=== PATIENT | male | born 1970 | race Caucasian/White ===

== ENCOUNTER 2020-12-14 12:14 | Outpatient (CLI) | payer BC ==
--- NOTE | 2020-12-14 12:39 | RAD ---
RADIOGRAPH CHEST 1 VIEW: DATE: 12/14/2020 HISTORY: 50-year-old male with intermittent fever for 2 months FINDINGS: There are no consolidations, pulmonary edema, pneumothorax, or cardiomegaly. The lateral costophrenic angles are sharp. Right subclavian dual lead permanent pacemaker. Prominent interstitial markings especially at lower lung zones. IMPRESSION: No consolidation.
== END 2020-12-14 12:15 | disposition home or self-care (01) ==
LOC: BICRAD 12:14
PROVIDERS: ATTEND Family Medicine
DX: R50.9 Fever, unspecified (principal)
CPT/HCPCS: 36415; 71046; 80053; 81001; 82164; 83520; 85025; 85379; 85652; 86140; 86200; 86618; 86780; 87040; 87389; 87497; 87798

== ENCOUNTER 2021-01-20 07:30 | Outpatient (CLI) | payer BC ==
[2021-01-20] MEDS ORDERED: Iopamidol-370 76% 500 ML 1 ML ONE (13:45)
== END 2021-01-20 07:31 | disposition home or self-care (01) ==
LOC: BICCT 07:30
PROVIDERS: ATTEND Internal Medicine Infectious Disease
DX: R50.9 Fever, unspecified (principal); E27.8 Other specified disorders of adrenal gland; K57.30 Diverticulosis of large intestine without perforation or abscess without bleeding; R91.8 Other nonspecific abnormal finding of lung field
CPT/HCPCS: 71260; 74177; Q9967

== ENCOUNTER 2021-02-23 07:57 | Outpatient (CLI) | payer BC ==
[2021-02-23] MEDS ORDERED: Iopamidol-370 76% 500 ML 1 ML ONE (14:49)
== END 2021-02-23 07:58 | disposition home or self-care (01) ==
LOC: BICCT 07:57
PROVIDERS: ATTEND Internal Medicine Infectious Disease
DX: E27.8 Other specified disorders of adrenal gland (principal); R50.9 Fever, unspecified; K76.0 Fatty (change of) liver, not elsewhere classified; K80.20 Calculus of gallbladder without cholecystitis without obstruction; K57.30 Diverticulosis of large intestine without perforation or abscess without bleeding
CPT/HCPCS: 74170; Q9967

== ENCOUNTER 2022-08-09 12:32 | Outpatient (CLI) | payer BC ==
[~2022-08-09 12:32] MED LIST: Iopamidol-370 76% 500 ML 1 ML ONE
== END 2022-08-09 12:33 | disposition home or self-care (01) ==
LOC: BICCT 12:32
PROVIDERS: ATTEND Internal Medicine Endocrinology, Diabetes & Metabolism
DX: E27.8 Other specified disorders of adrenal gland (principal); K80.20 Calculus of gallbladder without cholecystitis without obstruction; K57.30 Diverticulosis of large intestine without perforation or abscess without bleeding; K76.0 Fatty (change of) liver, not elsewhere classified
CPT/HCPCS: 74170; Q9967

== ENCOUNTER 2022-11-24 07:05 | Outpatient (CLI) | payer BC ==
[2022-11-22 14:04] VITALS: BMI 56.9
[2022-11-24 09:29] VITALS: BP 162/88; TEMP 98.7
[2022-11-24 10:00] LABS: CSF, Glucose 77 mg/dl (40-70); CSF, Protein 35 mg/dL (15-40)
[2022-11-24 10:32] LABS: CSF RBC Count - Manual 0 /cu.mm (None Seen); CSF Source CSF; CSF WBC/NonHematics Count-Man 1 /cu.mm (0-5); Clarity Clear (Clear); Tube # 4
[2022-11-27 16:37] LABS: VDRL, CSF Non Reactive (Non Rea:<1:1)
== END 2022-11-24 09:55 | disposition home or self-care (01) ==
LOC: RAD 07:05
PROVIDERS: ATTEND Psychiatry & Neurology Neurology
DX: R53.83 Other fatigue (principal)
CPT/HCPCS: 62270; 70450; 82945; 83916; 84157; 86592; 89051

== ENCOUNTER 2022-11-30 08:01 | Inpatient (IN) | payer BC ==
[2022-11-30] MEDS ORDERED: Morphine 4 MG/ML VIAL ONE (08:39)
[2022-11-30] MEDS ORDERED: Ondansetron PF 4 MG/2 ML Vial ONE (08:40)
[2022-11-30] MEDS ORDERED: Ketorolac Tromethamine 30 MG/ML VIAL ONE (08:40)
[2022-11-30 09:00] LABS: #Eosinphils 0.2 thou/uL (0.0-0.7); #Lymphocytes 3.1 thou/uL (1.20-3.40); #Monocytes 0.5 thou/uL (0.11-0.59); #Neutrophils 3.8 thou/uL (1.40-6.50); %Basophils 0.6 % (0.0-1.0); %Eosinophils 3.1 % (0.0-10.0); %Lymphocytes 40.1 % (21.0-51.0); %Monocytes 6.8 % (0.0-10.0); %Neutrophils 49.5 % (42.0-75.0); Mean Corpuscular HGB CONC 35.9 g/dL (32.0-36.0); Mean Corpuscular Hemoglobin 33.9 pg (27.0-31.0); Mean Corpuscular Volume 94.4 fl (78.0-98.0); Mean Platelet Volume 7.2 fL (7.4-10.4); Platelet Count 189 10x3/uL (130-400); RBC Distribution Width 12.3 % (11.5-14.5); Red Blood Cell (RBC) Count 4.73 mill/uL (4.70-6.10); White Blood Cell (WBC) Count 7.7 10x3/uL (4.8-10.8)
[2022-11-30 09:01] LABS: ALT (SGPT) 38 U/L (8-55); AST (SGOT) 22 U/L (5-34); Albumin 4.2 g/dL (3.5-5.0); Alkaline Phosphatase 80 U/L (40-110); Anion Gap 14 mmol/L (10-20); BUN (Urea Nitrogen) 13 mg/dL (8.4-25.7); Bilirubin, Total 0.9 mg/dL (0.2-1.2); CRP (Inflammatory) 0.82 mg/dL (= or < 0.5); Calc. Creatinine Clearance 0 mL/min (70-130); Calcium 9.4 mg/dL (7.8-10.44); Carbon Dioxide 24 mmol/L (22-29); Chloride 101 mmol/L (98-107); Estimated GFR 93; Globulin 3.2 g/dL (2.4-3.5); Glucose 140 mg/dL (70-105); Potassium 3.8 mmol/L (3.5-5.1); Protein, Total 7.4 g/dL (6.0-8.3); Sodium 135 mmol/L (136-145)
[2022-11-30 09:16] LABS: Bilirubin Negative (Negative); Blood, Urine Negative (Negative); Clarity Clear (Clear); Glucose, Urine (Dipstick) Normal (Negative); Ketone, Urine Negative (Negative); Leukocyte Negative Leu/uL (Negative); Nitrite Negative (Negative); Protein, Urine (Dipstick) Negative (Neg-Trace); Specific Gravity, Urine 1.014 (1.002-1.036); Urobilinogen Normal mg/dL (Less than 2); pH, Urine 5.5 (5.0-9.0)
[2022-11-30] MEDS ORDERED: Aspirin Chewable 81 MG TAB ONE (14:11)
[2022-11-30] MEDS ORDERED: Iopamidol-370 76% 500 ML 1 ML ONE ×2 (14:34→14:39)
[2022-11-30] MEDS ORDERED: Acetaminophen 325 MG TAB PO PRN (15:21)
[2022-11-30] MEDS ORDERED: HumaLOG 300 UNITS/3 ML VIAL SC PRN (15:27)
[2022-11-30] MEDS ORDERED: Morphine 4 MG/ML VIAL SLOW IVP PRN (15:27)
[2022-11-30] MEDS ORDERED: Dextrose 50% Abboject 50 ML SYRINGE SLOW IVP PRN (15:27)
[2022-11-30] MEDS ORDERED: Dextrose 5% in Water 1,000 ML IV PRN (15:27)
[2022-11-30] MEDS ORDERED: Nebivolol HCl 5 MG TAB PO SCH (15:29)
[2022-11-30] MEDS: Sodium Chloride 0.9% 1,000 ML IV SCH (17:08)
[2022-11-30 17:42] VITALS: BMI 57.0
[2022-11-30] MEDS: HYDROcodone/Acetaminophen 5/325 mg Tablet PO PRN (19:43)
[2022-11-30] MEDS: Atorvastatin Calcium 20 MG TAB PO SCH (20:47)
[2022-12-01] MEDS: Sodium Chloride 0.9% 1,000 ML IV SCH (05:33)
[2022-12-01] MEDS: HYDROcodone/Acetaminophen 5/325 mg Tablet PO PRN ×2 (05:43→11:13)
[2022-12-01 05:54] LABS: Anion Gap 13 mmol/L (10-20); BUN (Urea Nitrogen) 11 mg/dL (8.4-25.7); Calc. Creatinine Clearance 241 mL/min (70-130); Calcium 8.9 mg/dL (7.8-10.44); Carbon Dioxide 26 mmol/L (22-29); Chloride 101 mmol/L (98-107); Estimated GFR 105; Glucose 121 mg/dL (70-105); Potassium 3.6 mmol/L (3.5-5.1); Sodium 136 mmol/L (136-145)
[2022-12-01] MEDS: Aspirin 81 mg Enteric Coated Tablet PO SCH (08:54)
[2022-12-01] MEDS: Nebivolol HCl 5 MG TAB PO SCH (08:54)
[2022-12-01] MEDS ORDERED: FLU VACC QS2022-23(6MOS UP)/PF 60 MCG/0.5 ML SYRINGE IM ONE (09:00)
[2022-12-01] MEDS: HumaLOG 300 UNITS/3 ML VIAL SC PRN (11:07)
[2022-12-01 12:42] VITALS: BP 123/66
[2022-12-01] MEDS ORDERED: ADMIXTURE FEE IVPB SCH (14:30)
[2022-12-01] MEDS ORDERED: IMMUNE GLOBULIN IVPB SCH (14:30)
[2022-12-01 15:12] LABS: Anion Gap 12 mmol/L (10-20); BUN (Urea Nitrogen) 11 mg/dL (8.4-25.7); Calc. Creatinine Clearance 215 mL/min (70-130); Calcium 9.1 mg/dL (7.8-10.44); Carbon Dioxide 26 mmol/L (22-29); Chloride 101 mmol/L (98-107); Estimated GFR 98; Glucose 142 mg/dL (70-105); Magnesium 2.2 mg/dL (1.6-2.6); Phosphorus 2.7 mg/dL (2.3-4.7); Potassium 3.8 mmol/L (3.5-5.1); Sodium 135 mmol/L (136-145)
[2022-12-01] MEDS ORDERED: Dextrose 5 %-0.45 % NaCl 1,000 ML IV SCH (15:30)
[2022-12-01 15:31] LABS: Free T4 (Free Thyroxine) 0.89 ng/dL (0.70-1.48); Thyroid Stimulating Hormone 1.794 uIU/mL (0.35-4.94)
[2022-12-01] MEDS ORDERED: Morphine 2 MG/ML VIAL SLOW IVP PRN (15:38)
[2022-12-01] MEDS: Privigen 40 GM in Admixture Fee 1 EACH IVPB SCH (16:26)
[2022-12-01] MEDS: Morphine 4 MG/ML VIAL SLOW IVP PRN (16:27)
[2022-12-01] MEDS: Atorvastatin Calcium 20 MG TAB PO SCH (20:34)
[2022-12-02] MEDS: Morphine 4 MG/ML VIAL SLOW IVP PRN ×2 (02:13→13:46)
[2022-12-02 08:20] LABS: #Eosinphils 0.2 thou/uL (0.0-0.7); #Lymphocytes 1.8 thou/uL (1.20-3.40); #Monocytes 0.4 thou/uL (0.11-0.59); #Neutrophils 2.5 thou/uL (1.40-6.50); %Basophils 0.1 % (0.0-1.0); %Eosinophils 4.1 % (0.0-10.0); %Lymphocytes 36.9 % (21.0-51.0); %Monocytes 7.7 % (0.0-10.0); %Neutrophils 51.2 % (42.0-75.0); Hemoglobin 15.1 g/dL (14.0-18.0); Mean Corpuscular HGB CONC 34.7 g/dL (32.0-36.0); Mean Corpuscular Hemoglobin 32.7 pg (27.0-31.0); Mean Corpuscular Volume 94.5 fl (78.0-98.0); Mean Platelet Volume 6.6 fL (7.4-10.4); Platelet Count 184 10x3/uL (130-400); Red Blood Cell (RBC) Count 4.63 mill/uL (4.70-6.10); White Blood Cell (WBC) Count 4.9 10x3/uL (4.8-10.8)
[2022-12-02 08:39] LABS: Anion Gap 13 mmol/L (10-20); BUN (Urea Nitrogen) 9 mg/dL (8.4-25.7); Calc. Creatinine Clearance 239 mL/min (70-130); Carbon Dioxide 24 mmol/L (22-29); Chloride 101 mmol/L (98-107); Estimated GFR 105; Glucose 129 mg/dL (70-105); Potassium 3.7 mmol/L (3.5-5.1); Sodium 134 mmol/L (136-145)
[2022-12-02] MEDS: Aspirin 81 mg Enteric Coated Tablet PO SCH (09:09)
[2022-12-02] MEDS: Nebivolol HCl 5 MG TAB PO SCH ×2 (09:14→13:09)
[2022-12-02] MEDS: HumaLOG 300 UNITS/3 ML VIAL SC PRN (11:55)
[2022-12-02 11:56] VITALS: TEMP 97.3
[2022-12-02] MEDS: Privigen 40 GM in Admixture Fee 1 EACH IVPB SCH (15:32)
== END 2022-12-02 17:00 | disposition short-term general hospital (02) | DRG 74 ==
LOC: ERS 08:01 → NEURO 15:42 → OBSVTOIN 12-01 14:09 → IMCU/EMU 12-01 15:36
PROVIDERS: ADMIT Family Medicine; ATTEND Family Medicine
PROC: 30233S1 Transfusion of Nonautologous Globulin into Peripheral Vein, Percutaneous Approach (ICD-10-PCS; principal; 2022-12-01)
DX: G61.81 Chronic inflammatory demyelinating polyneuritis (principal); G93.49 Other encephalopathy; Z68.43 Body mass index [BMI] 50.0-59.9, adult; G81.94 Hemiplegia, unspecified affecting left nondominant side; I10 Essential (primary) hypertension; E11.9 Type 2 diabetes mellitus without complications; E66.9 Obesity, unspecified; Z95.0 Presence of cardiac pacemaker; Z90.49 Acquired absence of other specified parts of digestive tract; Z98.52 Vasectomy status; Z79.899 Other long term (current) drug therapy; Z79.82 Long term (current) use of aspirin; Z79.84 Long term (current) use of oral hypoglycemic drugs
CPT/HCPCS: 36415; 36416; 70450; 70496; 70498; 71045; 71275; 74174; 80048; 80053; 81003; 83690; 83735; 84100; 84439; 84443; 84481; 84484; 85025; 85652; 86140; 93005; 93306; 93970; 95712; 95819; 95957; 96372; 96374; 96375; G0378; J1459; J1650; J1815; J1885; J2270; J2272; J2405; J7050; Q9967; U0003; U0005

== ENCOUNTER 2022-12-26 14:29 | Emergency (ER) | payer BC ==
[2022-12-26 15:39] LABS: #Eosinphils 0.1 thou/uL (0.0-0.7); #Lymphocytes 2.6 thou/uL (1.20-3.40); #Monocytes 0.5 thou/uL (0.11-0.59); #Neutrophils 2.9 thou/uL (1.40-6.50); %Basophils 0.3 % (0.0-1.0); %Eosinophils 2.3 % (0.0-10.0); %Lymphocytes 41.8 % (21.0-51.0); %Monocytes 8.3 % (0.0-10.0); %Neutrophils 47.3 % (42.0-75.0); Hemoglobin 14.1 g/dL (14.0-18.0); Mean Corpuscular HGB CONC 34.6 g/dL (32.0-36.0); Mean Corpuscular Hemoglobin 32.4 pg (27.0-31.0); Mean Corpuscular Volume 93.6 fl (78.0-98.0); Mean Platelet Volume 6.8 fL (7.4-10.4); Platelet Count 188 10x3/uL (130-400); Red Blood Cell (RBC) Count 4.37 mill/uL (4.70-6.10); White Blood Cell (WBC) Count 6.1 10x3/uL (4.8-10.8)
[2022-12-26 15:47] LABS: Prothrombin Time 13.6 sec (12.0-14.7)
[2022-12-26 15:48] LABS: PTT 27.5 sec (22.9-36.1)
[2022-12-26 16:01] LABS: ALT (SGPT) 91 U/L (8-55); AST (SGOT) 33 U/L (5-34); Albumin 3.8 g/dL (3.5-5.0); Alkaline Phosphatase 74 U/L (40-110); Anion Gap 14 mmol/L (10-20); BUN (Urea Nitrogen) 11 mg/dL (8.4-25.7); Bilirubin, Total 0.6 mg/dL (0.2-1.2); Calc. Creatinine Clearance 0 mL/min (70-130); Carbon Dioxide 22 mmol/L (22-29); Chloride 102 mmol/L (98-107); Estimated GFR 86; Globulin 2.8 g/dL (2.4-3.5); Glucose 112 mg/dL (70-105); Lipase 33 U/L (8-78); Magnesium 1.7 mg/dL (1.6-2.6); Potassium 3.9 mmol/L (3.5-5.1); Protein, Total 6.6 g/dL (6.0-8.3); Sodium 134 mmol/L (136-145)
[2022-12-26] MEDS ORDERED: Aspirin Chewable 81 MG TAB ONE (16:31)
[2022-12-26] MEDS ORDERED: Morphine 4 MG/ML VIAL ONE (17:58)
[2022-12-26 18:10] LABS: SARS-CoV-2 NAA Rapid Test Not Detected (NotDetected)
== END 2022-12-26 19:43 | disposition short-term general hospital (02) ==
LOC: ERS 14:29
DX: I69.952 Hemiplegia and hemiparesis following unspecified cerebrovascular disease affecting left dominant side (principal); I63.9 Cerebral infarction, unspecified; G61.81 Chronic inflammatory demyelinating polyneuritis; E11.9 Type 2 diabetes mellitus without complications; E78.00 Pure hypercholesterolemia, unspecified; I10 Essential (primary) hypertension; Z87.891 Personal history of nicotine dependence; Z79.84 Long term (current) use of oral hypoglycemic drugs; Z79.899 Other long term (current) drug therapy; Z79.4 Long term (current) use of insulin; Z20.822 Contact with and (suspected) exposure to COVID-19
CPT/HCPCS: 36415; 70496; 70498; 71045; 80053; 83605; 83690; 83735; 83880; 84443; 84484; 85025; 85610; 85730; 93005; 96374; J2270; Q9967

== ENCOUNTER 2023-05-15 11:29 | Observation (INO) | payer BC ==
[2023-05-15 13:16] LABS: #Eosinphils 0.2 thou/uL (0.0-0.7); #Monocytes 0.5 thou/uL (0.11-0.59); #Neutrophils 3.4 thou/uL (1.40-6.50); %Basophils 0.5 % (0.0-1.0); %Eosinophils 2.7 % (0.0-10.0); %Lymphocytes 42.6 % (21.0-51.0); %Monocytes 7.2 % (0.0-10.0); %Neutrophils 46.9 % (42.0-75.0); Hemoglobin 15.6 g/dL (14.0-18.0); Mean Corpuscular HGB CONC 34.5 g/dL (32.0-36.0); Mean Corpuscular Hemoglobin 31.8 pg (27.0-31.0); Mean Corpuscular Volume 92.1 fl (78.0-98.0); Mean Platelet Volume 9.5 fL (7.4-10.4); Platelet Count 191 10x3/uL (130-400); RBC Distribution Width 13.4 % (11.5-14.5); Red Blood Cell (RBC) Count 4.91 mill/uL (4.70-6.10); White Blood Cell (WBC) Count 7.4 10x3/uL (4.8-10.8)
[2023-05-15 13:18] LABS: Actual Bicarbonate (HCO3v) 22.2 mEq/L (22-28); Analyzer IN Cardio ER; Base Excess 0.6 mEq/L (-2.0 to +3.0); Calcium, Ionized (venous) 0.85 mmol/L (1.16-1.32); Chloride (VBG) 104 mmol/L (98-106); Hematocrit-VBG 52 % (42.0-52.0); Hemoglobin (Hb) 17.6 g/dL (13.1-17.2); Potassium (VBG) 3.84 mmol/L (3.70-5.30); pH (venous) 7.504 (7.32-7.43)
[2023-05-15 13:34] LABS: ALT (SGPT) 35 U/L (8-55); AST (SGOT) 19 U/L (5-34); Albumin 4.3 g/dL (3.5-5.0); Alkaline Phosphatase 87 U/L (40-110); Anion Gap 11 mmol/L (10-20); BUN (Urea Nitrogen) 11 mg/dL (8.4-25.7); Bilirubin, Total 0.8 mg/dL (0.2-1.2); Calc. Creatinine Clearance 0 mL/min (70-130); Calcium 8.7 mg/dL (7.8-10.44); Carbon Dioxide 27 mmol/L (22-29); Chloride 104 mmol/L (98-107); Estimated GFR 93; Globulin 2.5 g/dL (2.4-3.5); Glucose 88 mg/dL (70-105); Potassium 4.2 mmol/L (3.5-5.1); Protein, Total 6.8 g/dL (6.0-8.3); Sodium 138 mmol/L (136-145)
[2023-05-15 13:59] LABS: Digoxin Less than 0.15 ng/mL (0.8-2.0)
[2023-05-15 14:05] LABS: Acetaminophen Less than 10 mcg/mL (10.0-30.0); Alcohol Less than 10.0 mg/dL (Less than 10); Lipase 44 U/L (8-78); Magnesium 1.9 mg/dL (1.6-2.6); Salicylate Less than 8.0 mg/dL (15.0-30.0)
[2023-05-15 15:10] LABS: Bacteria/HPF None Seen HPF (None Seen); Bilirubin Negative (Negative); Blood, Urine Negative (Negative); CAUTI Indications for Culture Alt mental st,lethar; Clarity Clear (Clear); Glucose, Urine (Dipstick) Normal (Negative); Ketone, Urine Negative (Negative); Leukocyte Negative Leu/uL (Negative); Nitrite Negative (Negative); Protein, Urine (Dipstick) Negative (Neg-Trace); RBC/HPF None Seen HPF (0-3); Specific Gravity, Urine 1.008 (1.002-1.036); Squamous Epithelial None Seen HPF (0-3); Urobilinogen Normal mg/dL (Less than 2); WBC/HPF None Seen HPF (0-3)
[2023-05-15 15:15] LABS: Urine Culture Reflex No No
[2023-05-15 15:16] VITALS: BMI 52.6
[2023-05-15 15:16] LABS: Amphetamine Not Detected (NotDetected); Barbiturates Screen Not Detected (NotDetected); Benzodiazepine Screen Not Detected (NotDetected); Cocaine Metabolite Screen Not Detected (NotDetected); Methadone Not Detected (NotDetected); Methamphetamine Not Detected (NotDetected); Opiate Screen Detected (NotDetected); Oxycodone Screen Not Detected (NotDetected); Phencyclidine (PCP) Not Detected (NotDetected); THC/Cannabinoid Screen Not Detected (NotDetected); Tricyclic Screen Not Detected (NotDetected)
[2023-05-15] MEDS ORDERED: Senokot S 8.6-50 MG TAB PO PRN (15:40)
[2023-05-15] MEDS ORDERED: Guaifenesin DM 100-10/5 ML UDCUP PO PRN (15:40)
[2023-05-15] MEDS ORDERED: Acetaminophen 325 MG TAB PO PRN (15:40)
[2023-05-15] MEDS ORDERED: Ondansetron PF 4 MG/2 ML Vial IVP PRN (15:40)
[2023-05-15] MEDS ORDERED: Bisacodyl 10 MG SUPP PR PRN (15:40)
[2023-05-15] MEDS ORDERED: CeleCOXIB 100 MG CAP PO PRN (16:21)
[2023-05-15] MEDS ORDERED: HYDROcodone/Acetaminophen 5/325 mg Tablet PO PRN (16:21)
[2023-05-15] MEDS ORDERED: Cyclobenzaprine 10 MG TAB PO PRN (16:21)
[2023-05-15] MEDS ORDERED: metFORMIN 500 MG TAB PO SCH (17:00)
[2023-05-15] MEDS: Gabapentin 400 MG CAP PO SCH (20:21)
[2023-05-15] MEDS: Icosapent Ethyl 1 GM CAPSULE PO SCH (20:22)
[2023-05-15] MEDS ORDERED: Atorvastatin Calcium 20 MG TAB PO SCH (21:00)
[2023-05-16 07:29] LABS: #Eosinphils 0.2 thou/uL (0.0-0.7); #Monocytes 0.5 thou/uL (0.11-0.59); #Neutrophils 3.5 thou/uL (1.40-6.50); %Basophils 0.6 % (0.0-1.0); %Eosinophils 2.9 % (0.0-10.0); %Lymphocytes 41.4 % (21.0-51.0); %Monocytes 6.9 % (0.0-10.0); %Neutrophils 48.1 % (42.0-75.0); Hemoglobin 14.8 g/dL (14.0-18.0); Mean Corpuscular HGB CONC 34.4 g/dL (32.0-36.0); Mean Corpuscular Hemoglobin 31.4 pg (27.0-31.0); Mean Corpuscular Volume 91.1 fl (78.0-98.0); Mean Platelet Volume 9.4 fL (7.4-10.4); Platelet Count 160 10x3/uL (130-400); RBC Distribution Width 13.2 % (11.5-14.5); Red Blood Cell (RBC) Count 4.72 mill/uL (4.70-6.10); White Blood Cell (WBC) Count 7.3 10x3/uL (4.8-10.8)
[2023-05-16 07:49] LABS: Anion Gap 14 mmol/L (10-20); BUN (Urea Nitrogen) 11 mg/dL (8.4-25.7); Calc. Creatinine Clearance 172 mL/min (70-130); Calcium 9.1 mg/dL (7.8-10.44); Carbon Dioxide 26 mmol/L (22-29); Chloride 103 mmol/L (98-107); Estimated GFR 86; Glucose 87 mg/dL (70-105); Potassium 3.9 mmol/L (3.5-5.1); Sodium 139 mmol/L (136-145)
[2023-05-16] MEDS: Gabapentin 400 MG CAP PO SCH (08:42)
[2023-05-16] MEDS: Icosapent Ethyl 1 GM CAPSULE PO SCH (08:43)
[2023-05-16] MEDS ORDERED: Chlorthalidone 25 MG TAB PO SCH (09:00)
[2023-05-16] MEDS ORDERED: Nebivolol HCl 5 MG TAB PO SCH (09:00)
[2023-05-16] MEDS ORDERED: Lisinopril 20 MG TAB PO SCH (09:00)
[2023-05-16] MEDS ORDERED: DULoxetine 60 MG CAP PO SCH (09:00)
[2023-05-16] MEDS ORDERED: Multivitamin W/ Minerals 1 TAB PO SCH (09:00)
[2023-05-16] MEDS ORDERED: Fish Oil 1,000 MG CAP PO SCH (09:00)
[2023-05-16] MEDS ORDERED: Aspirin 81 mg Enteric Coated Tablet PO SCH (09:00)
[2023-05-16 11:52] VITALS: BP 113/74; TEMP 97.5
[2023-05-19] MEDS ORDERED: Anastrozole 1 MG TAB PO SCH (09:00)
== END 2023-05-16 13:46 | disposition home or self-care (01) ==
LOC: ERS 11:29 → T4-A 13:58
PROVIDERS: ADMIT Internal Medicine; ATTEND Internal Medicine
DX: G93.40 Encephalopathy, unspecified (principal); E78.5 Hyperlipidemia, unspecified; G47.33 Obstructive sleep apnea (adult) (pediatric); E11.9 Type 2 diabetes mellitus without complications; I10 Essential (primary) hypertension; E66.01 Morbid (severe) obesity due to excess calories; Z68.43 Body mass index [BMI] 50.0-59.9, adult; Z79.82 Long term (current) use of aspirin; Z79.899 Other long term (current) drug therapy; Z90.49 Acquired absence of other specified parts of digestive tract; Z86.73 Personal history of transient ischemic attack (TIA), and cerebral infarction without residual deficits
CPT/HCPCS: 36415; 70450; 71045; 80048; 80053; 80162; 80306; 80307; 81001; 82805; 83605; 83690; 83735; 83880; 84484; 85025; 93005; 96360; 96372; G0378; J1650

== ENCOUNTER 2024-05-13 09:13 | Inpatient (IN) | payer BC ==
[2024-05-13] MEDS ORDERED: Ondansetron PF 4 MG/2 ML Vial ONE (10:02)
[2024-05-13] MEDS ORDERED: Morphine 4 MG/ML VIAL ONE (10:02)
[2024-05-13 10:37] LABS: #Basophils 0.03 10x3/uL (0.0-0.2); %Basophils 0.3 % (0.0-1.0); %Eosinophils 0.3 % (0.0-10.0); %Lymphocytes 25.2 % (21.0-51.0); %Neutrophils 69.9 % (42.0-75.0); Hematocrit 44.5 % (42.0-52.0); Hemoglobin 15.9 g/dL (14.0-18.0); Mean Corpuscular HGB CONC 35.7 g/dL (32.0-36.0); Mean Corpuscular Hemoglobin 32.6 pg (27.0-31.0); Mean Corpuscular Volume 91.2 fL (78.0-98.0); Mean Platelet Volume 9.1 fL (7.4-10.4); Platelet Count 239 10x3/uL (130-400); RBC Distribution Width 13.2 % (11.5-14.5); Red Blood Cell (RBC) Count 4.88 mill/uL (4.70-6.10)
[2024-05-13 10:55] LABS: ALT (SGPT) 61 U/L (8-55); AST (SGOT) 31 U/L (5-34); Alkaline Phosphatase 97 U/L (40-110); Anion Gap 14 mmol/L (10-20); BUN (Urea Nitrogen) 22 mg/dL (8.4-25.7); Bilirubin, Total 0.8 mg/dL (0.2-1.2); Calc. Creatinine Clearance 0 mL/min (70-130); Calcium 9.9 mg/dL (7.8-10.44); Carbon Dioxide 22 mmol/L (22-29); Chloride 105 mmol/L (98-107); Estimated GFR 99; Glucose 130 mg/dL (70-105); Lipase 24 U/L (8-78); Potassium 4.1 mmol/L (3.5-5.1); Sodium 137 mmol/L (136-145)
[2024-05-13 11:44] LABS: Influenza A by NAA Not Detected (NotDetected); Influenza B by NAA Not Detected (NotDetected); SARS-CoV-2 NAA Rapid Test Not Detected (NotDetected)
[2024-05-13 12:20] LABS: Bacteria/HPF None Seen HPF (None Seen); Bilirubin Negative (Negative); Blood, Urine Negative (Negative); CAUTI Indications for Culture Pelvic or flank pain; Clarity Clear (Clear); Glucose, Urine (Dipstick) Normal (Negative); Ketone, Urine Negative (Negative); Leukocyte Negative Leu/uL (Negative); Nitrite Negative (Negative); Protein, Urine (Dipstick) 70 mg/dL (Neg-Trace); RBC/HPF 0-3 HPF (0-3); Specific Gravity, Urine 1.031 (1.002-1.036); Squamous Epithelial 0-3 HPF (0-3); Urobilinogen Normal mg/dL (Less than 2); WBC/HPF 0-3 HPF (0-3)
[2024-05-13 12:22] LABS: Urine Culture Reflex No No
[2024-05-13] MEDS ORDERED: Acetaminophen 650 MG Suppository PR PRN (13:11)
[2024-05-13] MEDS ORDERED: Dextrose 5% in Water 1,000 ML IV PRN (14:13)
[2024-05-13] MEDS ORDERED: Glucagon 1 MG/ML KIT IM PRN (14:13)
[2024-05-13] MEDS ORDERED: Dextrose 50% Abboject 50 ML SYRINGE SLOW IVP PRN (14:13)
[2024-05-13] MEDS ORDERED: Insulin Regular, Human 100 UNIT/ML 10 ML VIAL SC PRN (14:13)
[2024-05-13 14:55] VITALS: BMI 53.2
[2024-05-13] MEDS ORDERED: Iopamidol-370 76% 500 ML MDV (1 ML CHARGE) ONE (15:13)
[2024-05-13] MEDS: Morphine 4 MG/ML VIAL SLOW IVP PRN (16:11)
[2024-05-13] MEDS: Sodium Chloride 0.9% 1,000 ML IV SCH (16:13)
[2024-05-13] MEDS ORDERED: Benzocaine/Menthol 1 LOZ LOZ PO PRN (17:29)
[2024-05-13] MEDS: Morphine 2 MG/ML VIAL SLOW IVP PRN (21:13)
[2024-05-14 06:10] LABS: #Basophils 0.03 10x3/uL (0.0-0.2); %Basophils 0.4 % (0.0-1.0); %Eosinophils 3.8 % (0.0-10.0); %Lymphocytes 35.4 % (21.0-51.0); %Monocytes 7.9 % (0.0-10.0); %Neutrophils 52.2 % (42.0-75.0); Hematocrit 39.5 % (42.0-52.0); Hemoglobin 13.5 g/dL (14.0-18.0); Mean Corpuscular HGB CONC 34.2 g/dL (32.0-36.0); Mean Corpuscular Hemoglobin 32.7 pg (27.0-31.0); Mean Corpuscular Volume 95.6 fL (78.0-98.0); Mean Platelet Volume 9.1 fL (7.4-10.4); Platelet Count 181 10x3/uL (130-400); RBC Distribution Width 13.4 % (11.5-14.5); Red Blood Cell (RBC) Count 4.13 mill/uL (4.70-6.10)
[2024-05-14 06:44] LABS: ALT (SGPT) 56 U/L (8-55); AST (SGOT) 34 U/L (5-34); Albumin 3.4 g/dL (3.5-5.0); Alkaline Phosphatase 79 U/L (40-110); Anion Gap 12 mmol/L (10-20); BUN (Urea Nitrogen) 22 mg/dL (8.4-25.7); Calc. Creatinine Clearance 221 mL/min (70-130); Calcium 8.5 mg/dL (7.8-10.44); Carbon Dioxide 24 mmol/L (22-29); Chloride 108 mmol/L (98-107); Estimated GFR 103; Globulin 3.2 g/dL (2.4-3.5); Glucose 103 mg/dL (70-105); Potassium 3.8 mmol/L (3.5-5.1); Protein, Total 6.6 g/dL (6.0-8.3); Sodium 140 mmol/L (136-145)
[2024-05-14] MEDS: Enoxaparin 40 MG (0.4 mL) SYRINGE SC SCH (08:08)
[2024-05-15] MEDS: Ondansetron PF 4 MG/2 ML Vial IVP PRN (01:37)
[2024-05-15] MEDS: Pantoprazole 40 MG VIAL IVP SCH (03:33)
[2024-05-15] MEDS: Lorazepam 2 MG/ML VIAL SLOW IVP PRN (03:47)
[2024-05-15 06:41] LABS: Anion Gap 11 mmol/L (10-20); BUN (Urea Nitrogen) 17 mg/dL (8.4-25.7); Calc. Creatinine Clearance 244 mL/min (70-130); Calcium 8.7 mg/dL (7.8-10.44); Carbon Dioxide 28 mmol/L (22-29); Chloride 104 mmol/L (98-107); Estimated GFR 106; Glucose 103 mg/dL (70-105); Magnesium 2.1 mg/dL (1.6-2.6); Potassium 3.6 mmol/L (3.5-5.1); Sodium 139 mmol/L (136-145)
[2024-05-15] MEDS: DULoxetine 60 MG CAP PO SCH (13:18)
[2024-05-15] MEDS: Gabapentin 400 MG CAP PO SCH (14:47)
[2024-05-15] MEDS: Mag-Al 1200 mg/1200 mg/30 ML UDCUP PO PRN (17:13)
[2024-05-15] MEDS: Atorvastatin Calcium 20 MG TAB PO SCH (21:20)
[2024-05-15] MEDS: Icosapent Ethyl 1 GM CAPSULE PO SCH (21:20)
[2024-05-16] MEDS: Aspirin 81 mg Enteric Coated Tablet PO SCH (08:34)
[2024-05-16] MEDS: DULoxetine 60 MG CAP PO SCH (08:34)
[2024-05-16] MEDS: Nebivolol HCl 5 MG TAB PO SCH (08:35)
[2024-05-16] MEDS ORDERED: Non-Formulary Item 1 EACH (Nebivolol Hcl [Bystolic] 20 MG Tablet) PO SCH (09:00)
[2024-05-16 11:30] VITALS: BP 102/67; TEMP 97.9
== END 2024-05-16 13:31 | disposition home or self-care (01) | DRG 389 ==
LOC: ERS 09:13 → T4-B 13:06
PROVIDERS: ADMIT Internal Medicine; ATTEND Family Medicine
DX: K56.609 Unspecified intestinal obstruction, unspecified as to partial versus complete obstruction (principal); Z68.42 Body mass index [BMI] 45.0-49.9, adult; I10 Essential (primary) hypertension; E78.5 Hyperlipidemia, unspecified; R00.1 Bradycardia, unspecified; Z66 Do not resuscitate; Z51.5 Encounter for palliative care; R16.0 Hepatomegaly, not elsewhere classified; K80.20 Calculus of gallbladder without cholecystitis without obstruction; E27.8 Other specified disorders of adrenal gland; E11.40 Type 2 diabetes mellitus with diabetic neuropathy, unspecified; E66.01 Morbid (severe) obesity due to excess calories; G47.33 Obstructive sleep apnea (adult) (pediatric); Z95.0 Presence of cardiac pacemaker; Z86.73 Personal history of transient ischemic attack (TIA), and cerebral infarction without residual deficits; Z79.82 Long term (current) use of aspirin; Z79.899 Other long term (current) drug therapy; Z90.49 Acquired absence of other specified parts of digestive tract; Z90.79 Acquired absence of other genital organ(s)
CPT/HCPCS: 36415; 36416; 43753; 51701; 71045; 74177; 80048; 80053; 81001; 83605; 83690; 83735; 85025; 96374; 96375; J1650; J2060; J2270; J2272; J2405; J2470; J7030; Q9967

== ENCOUNTER 2025-08-26 10:13 | Outpatient (CLI) | payer MEDICARE | END 2025-08-26 10:14 | disposition home or self-care (01) | PROVIDERS: ATTEND Family Medicine | DX: M51.9 Unspecified thoracic, thoracolumbar and lumbosacral intervertebral disc disorder (principal); G89.4 Chronic pain syndrome; I67.9 Cerebrovascular disease, unspecified; R26.9 Unspecified abnormalities of gait and mobility; E66.9 Obesity, unspecified ==